=== PATIENT | female | born 1950 | race Caucasian/White ===

== ENCOUNTER → 2018-05-08 | Outpatient (CLI) | payer MEDICARE ==
[~2018-05-08] MED LIST: ACYC400T PO; CITA40TA6 PO; DONE5TAB33 PO; HYDR25TA PO; METO50TA18 PO; PANT40TA25 PO; PRAV20TA4 PO; TIMO1DRO2 OP; XALA2.5OS OD
== END | disposition home or self-care (01) ==
LOC: RAH 14:44
PROVIDERS: ATTEND Internal Medicine Critical Care Medicine
DX: G31.9 Degenerative disease of nervous system, unspecified (principal); R29.810 Facial weakness
CPT/HCPCS: 70551

== ENCOUNTER → 2020-08-05 | Outpatient (CLI) | payer MEDICARE, OTHER ==
[~2020-08-05] MED LIST changes: -PANT40TA25 PO; +PANT40TA54 PO
== END | disposition home or self-care (01) ==
LOC: RAH 09:57
PROVIDERS: ATTEND Internal Medicine Critical Care Medicine
DX: Z12.31 Encounter for screening mammogram for malignant neoplasm of breast (principal)
CPT/HCPCS: 77067

== ENCOUNTER → 2020-08-18 | Outpatient (CLI) | payer OTHER | END | disposition home or self-care (01) | LOC: RAH 13:22 | PROVIDERS: ATTEND Internal Medicine Critical Care Medicine | DX: N63.21 Unspecified lump in the left breast, upper outer quadrant (principal) | CPT/HCPCS: 76641; 77065 ==

== ENCOUNTER 2022-08-07 08:46 | Inpatient (IN) | payer OTHER ==
[~2022-08-07] VITALS: Ht 149.9 cm; Wt 66.0 kg
[2022-08-07] VITALS (23 sets, daily range): BP systolic 98–168; BP diastolic 60–78
[~2022-08-07 08:46] MED LIST changes: -ACYC400T PO; +ACYC400T20 PO; +CITA-108 PO; -CITA40TA6 PO
[2022-08-07] MEDS ORDERED: ONDANSETRON 4MG INJ IVP ONE (09:30)
[2022-08-07] MEDS ORDERED: KETOROLAC 30MG VIAL (30MG/ML) IVP ONE (09:30)
[2022-08-07] MEDS ORDERED: FAMOTIDINE 20MG VIAL IV ONE (09:30)
[2022-08-07 09:40] LABS: BASOPHILS % (AUTO) 0.2 % (0.0-5.0); EOSINOPHILS % (AUTO) 0.1 % (0.0-8.0); HEMATOCRIT 44.7 % (36-48); LYMPHOCYTES % (AUTO) 7.4 % (21.0-51.0); MEAN CORPUSCULAR HEMOGLOBIN 30.4 pg (27.0-33.0); MEAN CORPUSCULAR HGB CONC 33.6 g/dL (32.0-36.0); MEAN CORPUSCULAR VOLUME 90.7 fL (79-99); MONOCYTES % (AUTO) 8.1 % (3.0-13.0); NEUTROPHILS % (AUTO) 83.8 % (40.0-77.0); PLATELET COUNT (AUTO) 320 K/uL (130-400); RED BLOOD CELL COUNT(AUTO) 4.93 MIL/uL (4.00-5.50); RED CELL DISTRIBUTION WIDTH 13.2 % (11.0-15.5)
[2022-08-07 10:04] LABS: CREATININE 1.1 mg/dL (0.5-1.5); POTASSIUM 3.2 mmol/L (3.5-5.1)
[2022-08-07 10:09] LABS: ALBUMIN 3.9 g/dL (3.5-5.0); TOTAL PROTEIN, SERUM 7.6 g/dL (6.0-8.3)
[2022-08-07] MEDS ORDERED: IOHEXOL 350 MG/ML 100ML INFUS..BTL IV ONE (10:20)
[2022-08-07 10:54] LABS: INR 0.98 (0.85-1.15); PROTHROMBIN TIME 10.7 SEC (9.6-11.6)
[2022-08-07 10:55] LABS: PARTIAL THROMBOPLASTIN TIME 23.1 SEC (26.3-35.5)
[2022-08-07] MEDS ORDERED: ASPIRIN 325MG EC TAB PO ONE (11:00)
[2022-08-07] MEDS ORDERED: HYDROMORPHONE 1 MG INJ IVP PRN (11:00)
[2022-08-07] MEDS ORDERED: HEPARIN 25,000 UNITS/250ML D5W 250 ML IV SCH (11:00)
[2022-08-07] MEDS ORDERED: ACETAMINOPHEN 325 MG TAB PO PRN (11:00)
[2022-08-07] MEDS: FLUCONAZOLE 400 MG/NS 200 ML IV SCH (11:27)
[2022-08-07] MEDS: 0.9%NACL 1000ML 1,000 ML IV SCH (11:27)
[2022-08-07] MEDS: INSULIN HUMULIN R 100 UNIT/ML 3ML SQ SCH ×3 (11:28→20:20)
[2022-08-07 11:51] LABS: APPEARANCE,URINE CLEAR (CLEAR); BILIRUBIN,URINE 0.5 mg/dL (NEGATIVE); COLOR,URINE YELLOW (YELLOW); GLUCOSE, URINE (UA) NEGATIVE (NEGATIVE); KETONES,URINE 10 mg/dL (NEGATIVE); LEUKOCYTE ESTERASE ,URINE NEGATIVE Leu/uL (NEGATIVE); NITRATE,URINE NEGATIVE (NEGATIVE); OCCULT BLOOD,URINE SMALL (NEGATIVE); PROTEIN,URINE NEGATIVE (NEGATIVE); UROBILINOGEN,URINE 0.2 mg/dL (0.2-1.0)
[2022-08-07 12:15] LABS: MUCUS,URINE RARE LPF (None Seen); SQUAMOUS EPITHELIAL CELL,UR RARE /HPF (0-2)
[2022-08-07] MEDS ORDERED: CHOL4POW4 PO (14:54)
[2022-08-07] MEDS ORDERED: METF-910 PO (14:54)
[2022-08-07] MEDS ORDERED: MIDAZOLAM HCL 1 MG/ML 2ML VIAL ONE (18:08)
[2022-08-07] MEDS ORDERED: LIDOCAINE PF 100MG/5ML (2%) SYRINGE 5ML ONE (18:08)
[2022-08-07] MEDS ORDERED: DEXAMETHASONE SOD PHOSPHATE 10MG/ML 1ML VIAL ONE (18:08)
[2022-08-07] MEDS ORDERED: GLYCOPYRROLATE 1 MG/5 ML SYRINGE ONE (18:08)
[2022-08-07] MEDS ORDERED: ONDANSETRON 4MG INJ ONE (18:08)
[2022-08-07] MEDS ORDERED: SUCCINYLCHOLINE CHLORIDE 20 MG/ML 10 ML VIAL ONE (18:08)
[2022-08-07] MEDS ORDERED: NEOSTIGMINE 5MG/5ML SYR IV ONE (18:09)
[2022-08-07] MEDS ORDERED: PROPOFOL 10 MG/ML 20ML VIAL IV ONE (18:09)
[2022-08-07] MEDS ORDERED: ROCURONIUM 10MG/1ML SYR 10 MG/ML ML ONE (18:09)
[2022-08-07] MEDS ORDERED: FENTANYL CITRATE PF 50 MCG/1 ML 2ML VIAL ONE (18:10)
[2022-08-07] MEDS ORDERED: IOHEXOL-350 50ML VIAL IV ONE (18:12)
[2022-08-07] MEDS ORDERED: EPHEDRINE SULFATE 50 MG/ML AMPULE ONE (18:13)
[2022-08-07] MEDS ORDERED: ESMOLOL HCL 10 MG/ML 10 ML VIAL ONE (18:50)
[2022-08-07] MEDS ORDERED: POTASSIUM CHLORIDE 20MEQ/100ML 100 ML IV PRN (19:30)
[2022-08-07] MEDS: CEFEPIME HCL 1 GM VIAL IVP SCH (20:07)
[2022-08-08 00:15] VITALS: BP 102/59
[2022-08-08] MEDS: 0.9%NACL 1000ML 1,000 ML IV SCH ×3 (00:20→21:14)
[2022-08-08 05:01] VITALS: BP 105/59
[2022-08-08 05:10] LABS: BASOPHILS % (AUTO) 0.4 % (0.0-5.0); HEMATOCRIT 35.2 % (36-48); LYMPHOCYTES % (AUTO) 21.7 % (21.0-51.0); MEAN CORPUSCULAR HEMOGLOBIN 30.8 pg (27.0-33.0); MEAN CORPUSCULAR HGB CONC 33.2 g/dL (32.0-36.0); MEAN CORPUSCULAR VOLUME 92.6 fL (79-99); MONOCYTES % (AUTO) 11.9 % (3.0-13.0); NEUTROPHILS % (AUTO) 63.7 % (40.0-77.0); PLATELET COUNT (AUTO) 224 K/uL (130-400); RED CELL DISTRIBUTION WIDTH 13.5 % (11.0-15.5); WHITE BLOOD COUNT (AUTO) 7.8 K/uL (4.8-10.8)
[2022-08-08 05:25] LABS: CREATININE 0.9 mg/dL (0.5-1.5); POTASSIUM 3.6 mmol/L (3.5-5.1)
[2022-08-08] MEDS: INSULIN HUMULIN R 100 UNIT/ML 3ML SQ SCH ×4 (05:30→21:00)
[2022-08-08 05:38] LABS: ALBUMIN 2.8 g/dL (3.5-5.0); MAGNESIUM 1.8 mg/dL (1.80-2.40); PHOSPHORUS 3.4 mg/dL (2.5-4.9); THYROID STIMULATING HORMONE 0.3 uIU/mL (0.36-3.74); TOTAL PROTEIN, SERUM 5.9 g/dL (6.0-8.3)
[2022-08-08 08:00] VITALS: BP 112/65
[2022-08-08] MEDS: CEFEPIME HCL 1 GM VIAL IVP SCH ×2 (09:15→21:14)
[2022-08-08] MEDS: FLUCONAZOLE 400 MG/NS 200 ML IV SCH (09:20)
[2022-08-08 12:00] VITALS: BP 99/57
[2022-08-08] MEDS ORDERED: POTASSIUM CHLORIDE 10% ELIXIR 20 MEQ/15 ML UDCUP PO PRN (17:30)
[2022-08-08] MEDS ORDERED: LIDOCAINE HCL-MPF 1% 2ML VIAL IV PRN (17:30)
[2022-08-08] MEDS ORDERED: POTASSIUM CHLORIDE 20MEQ/100ML 100 ML IV PRN (17:30)
[2022-08-08] MEDS: KCL 20 MEQ ERTAB PO PRN ×2 (18:12→21:20)
[2022-08-08 19:57] VITALS: BP 129/75
[2022-08-08] MEDS: METRONIDAZOLE 500MG/100ML BAG 100 ML IVPB SCH (22:13)
[2022-08-08 23:39] VITALS: BP 123/72
[2022-08-09 04:48] VITALS: BP 117/75
[2022-08-09 04:49] LABS: BASOPHILS % (AUTO) 0.6 % (0.0-5.0); EOSINOPHILS % (AUTO) 1.5 % (0.0-8.0); HEMATOCRIT 33.1 % (36-48); LYMPHOCYTES % (AUTO) 25.9 % (21.0-51.0); MEAN CORPUSCULAR HEMOGLOBIN 30.6 pg (27.0-33.0); MEAN CORPUSCULAR HGB CONC 32.9 g/dL (32.0-36.0); NEUTROPHILS % (AUTO) 60.6 % (40.0-77.0); PLATELET COUNT (AUTO) 244 K/uL (130-400); RED BLOOD CELL COUNT(AUTO) 3.56 MIL/uL (4.00-5.50); RED CELL DISTRIBUTION WIDTH 13.6 % (11.0-15.5); WHITE BLOOD COUNT (AUTO) 6.8 K/uL (4.8-10.8)
[2022-08-09 05:01] LABS: ALBUMIN 2.8 g/dL (3.5-5.0); BILIRUBIN,DIRECT 0.8 mg/dL (0.0-0.3); CREATININE 0.8 mg/dL (0.5-1.5); POTASSIUM 3.8 mmol/L (3.5-5.1); TOTAL PROTEIN, SERUM 5.9 g/dL (6.0-8.3)
[2022-08-09] MEDS: INSULIN HUMULIN R 100 UNIT/ML 3ML SQ SCH ×4 (05:12→20:57)
[2022-08-09] MEDS: METRONIDAZOLE 500MG/100ML BAG 100 ML IVPB SCH ×3 (05:25→21:13)
[2022-08-09 08:00] VITALS: BP 127/72
[2022-08-09] MEDS: FLUCONAZOLE 400 MG/NS 200 ML IV SCH (09:23)
[2022-08-09] MEDS: PANTOPRAZOLE 40 MG/VIAL IVP SCH (09:24)
[2022-08-09] MEDS: CEFEPIME HCL 1 GM VIAL IVP SCH ×2 (09:24→20:57)
[2022-08-09] MEDS: ENOXAPARIN SODIUM 40 MG/0.4 ML SYRINGE SQ SCH (09:25)
[2022-08-09 12:00] VITALS: BP 139/76
[2022-08-09] MEDS: 0.9%NACL 1000ML 1,000 ML IV SCH (16:42)
[2022-08-09 20:38] VITALS: BP 143/90
[2022-08-09 23:37] VITALS: BP 128/76
[2022-08-10 04:10] VITALS: BP 141/78
[2022-08-10 04:38] LABS: BASOPHILS % (AUTO) 0.7 % (0.0-5.0); EOSINOPHILS % (AUTO) 2.4 % (0.0-8.0); HEMATOCRIT 34.2 % (36-48); LYMPHOCYTES % (AUTO) 29.7 % (21.0-51.0); MEAN CORPUSCULAR HEMOGLOBIN 30.9 pg (27.0-33.0); MEAN CORPUSCULAR VOLUME 93.4 fL (79-99); MONOCYTES % (AUTO) 11.8 % (3.0-13.0); NEUTROPHILS % (AUTO) 55.1 % (40.0-77.0); PLATELET COUNT (AUTO) 233 K/uL (130-400); RED BLOOD CELL COUNT(AUTO) 3.66 MIL/uL (4.00-5.50); RED CELL DISTRIBUTION WIDTH 13.8 % (11.0-15.5); WHITE BLOOD COUNT (AUTO) 5.9 K/uL (4.8-10.8)
[2022-08-10] MEDS: 0.9%NACL 1000ML 1,000 ML IV SCH (04:49)
[2022-08-10] MEDS: METRONIDAZOLE 500MG/100ML BAG 100 ML IVPB SCH ×2 (04:49→14:35)
[2022-08-10 04:57] LABS: ALBUMIN 2.8 g/dL (3.5-5.0); CREATININE 0.7 mg/dL (0.5-1.5); POTASSIUM 3.9 mmol/L (3.5-5.1); TOTAL PROTEIN, SERUM 6.2 g/dL (6.0-8.3)
[2022-08-10] MEDS: INSULIN HUMULIN R 100 UNIT/ML 3ML SQ SCH ×3 (05:27→15:35)
[2022-08-10 08:00] VITALS: BP 139/80
[2022-08-10] MEDS: FLUCONAZOLE 400 MG/NS 200 ML IV SCH (08:24)
[2022-08-10] MEDS: ENOXAPARIN SODIUM 40 MG/0.4 ML SYRINGE SQ SCH (08:25)
[2022-08-10] MEDS: CEFEPIME HCL 1 GM VIAL IVP SCH (08:25)
[2022-08-10] MEDS: PANTOPRAZOLE 40 MG/VIAL IVP SCH (08:25)
[2022-08-10 11:59] VITALS: BP 157/86
[2022-08-10 16:00] VITALS: BP 153/71
[2022-08-10] MEDS ORDERED: URSO300C4 PO (17:24)
[2022-08-10] MEDS ORDERED: AMOX-426 PO (18:13)
== END 2022-08-10 18:15 | disposition home or self-care (01) | DRG 444 ==
LOC: EDH 08:46 → OBSVTOIN 10:58 → EDHIP 10:58 → 4AH 12:15
PROVIDERS: ADMIT Internal Medicine; ATTEND Internal Medicine
PROC: 0FC98ZZ Extirpation of Matter from Common Bile Duct, Via Natural or Artificial Opening Endoscopic (ICD-10-PCS; principal; 2022-08-07)
PROC: BF131ZZ Fluoroscopy of Gallbladder and Bile Ducts using Low Osmolar Contrast (ICD-10-PCS; 2022-08-07)
PROC: 0F798ZZ Dilation of Common Bile Duct, Via Natural or Artificial Opening Endoscopic (ICD-10-PCS; 2022-08-07)
DX: K80.63 Calculus of gallbladder and bile duct with acute cholecystitis with obstruction (principal); I21.A1 Myocardial infarction type 2; K85.10 Biliary acute pancreatitis without necrosis or infection; F03.94 Unspecified dementia, unspecified severity, with anxiety; B00.52 Herpesviral keratitis; K83.09 Other cholangitis; E11.9 Type 2 diabetes mellitus without complications; E78.00 Pure hypercholesterolemia, unspecified; I10 Essential (primary) hypertension; Z90.710 Acquired absence of both cervix and uterus
CPT/HCPCS: 36415; 43262; 43264; 71045; 74177; 74330; 76700; 80048; 80053; 80076; 81001; 82948; 83690; 83735; 84100; 84145; 84443; 84478; 84484; 85025; 85610; 85730; 93005; 99291; C1769; C1773; C9113; G0378; J0330; J0692; J1100; J1450; J1650; J1885; J2001; J2250; J2405; J2704; J2710; J3010; J3490; J7030; Q9967

== ENCOUNTER 2022-08-29 05:59 | Emergency (ER) | payer OTHER ==
[~2022-08-29] VITALS: Ht 149.9 cm; Wt 67.1 kg
[~2022-08-29 05:59] MED LIST changes: +AMOX-426 PO; +METF-910 PO; +URSO300C4 PO
[2022-08-29 06:49] LABS: BASOPHILS % (AUTO) 0.9 % (0.0-5.0); EOSINOPHILS % (AUTO) 1.6 % (0.0-8.0); HEMATOCRIT 41.1 % (36-48); LYMPHOCYTES % (AUTO) 33.6 % (21.0-51.0); MEAN CORPUSCULAR HEMOGLOBIN 30.4 pg (27.0-33.0); MEAN CORPUSCULAR HGB CONC 32.8 g/dL (32.0-36.0); MEAN CORPUSCULAR VOLUME 92.6 fL (79-99); MONOCYTES % (AUTO) 8.4 % (3.0-13.0); NEUTROPHILS % (AUTO) 55.4 % (40.0-77.0); PLATELET COUNT (AUTO) 252 K/uL (130-400); RED BLOOD CELL COUNT(AUTO) 4.44 MIL/uL (4.00-5.50); RED CELL DISTRIBUTION WIDTH 12.7 % (11.0-15.5); WHITE BLOOD COUNT (AUTO) 8.1 K/uL (4.8-10.8)
[2022-08-29 07:08] LABS: ALBUMIN 3.7 g/dL (3.5-5.0); MAGNESIUM 1.7 mg/dL (1.80-2.40); POTASSIUM 4.3 mmol/L (3.5-5.1); TOTAL PROTEIN, SERUM 6.8 g/dL (6.0-8.3)
[2022-08-29 07:11] LABS: APPEARANCE,URINE CLEAR (CLEAR); BILIRUBIN,URINE NEGATIVE (NEGATIVE); COLOR,URINE DARK-YELLOW (YELLOW); GLUCOSE, URINE (UA) NEGATIVE (NEGATIVE); KETONES,URINE NEGATIVE (NEGATIVE); LEUKOCYTE ESTERASE ,URINE 75 Leu/uL (NEGATIVE); NITRATE,URINE NEGATIVE (NEGATIVE); OCCULT BLOOD,URINE NEGATIVE (NEGATIVE); PH,URINE 5.5 (5.0-8.0); PROTEIN,URINE NEGATIVE (NEGATIVE); UROBILINOGEN,URINE 0.2 mg/dL (0.2-1.0)
[2022-08-29 07:25] LABS: MUCUS,URINE RARE LPF (None Seen); SQUAMOUS EPITHELIAL CELL,UR RARE /HPF (0-2)
[2022-08-29] MEDS ORDERED: OSEL75 PO (08:55)
[2022-08-29 09:20] VITALS: BP 111/63
== END 2022-08-29 09:31 | disposition home or self-care (01) ==
LOC: EDH 05:59
DX: J10.1 Influenza due to other identified influenza virus with other respiratory manifestations (principal); E86.9 Volume depletion, unspecified; R55 Syncope and collapse; I10 Essential (primary) hypertension; E11.9 Type 2 diabetes mellitus without complications; Z20.822 Contact with and (suspected) exposure to COVID-19; Z79.899 Other long term (current) drug therapy; Z79.84 Long term (current) use of oral hypoglycemic drugs; Z90.49 Acquired absence of other specified parts of digestive tract; Z98.890 Other specified postprocedural states
CPT/HCPCS: 99285; 70450; 71045; 87635; 83735; 84484; 80053; 85025; 87088; 87804 ×2; 83605; 81001; 36415; 93005; C9803

== ENCOUNTER → 2023-03-23 | Outpatient (CLI) | payer OTHER ==
[~2023-03-23] MED LIST changes: +OSEL75 PO
== END | disposition home or self-care (01) ==
LOC: RAH 10:56
PROVIDERS: ATTEND Internal Medicine Critical Care Medicine
DX: Z12.31 Encounter for screening mammogram for malignant neoplasm of breast (principal)
CPT/HCPCS: 77063; 77067

== ENCOUNTER → 2023-06-07 | Outpatient (CLI) | payer OTHER | END | disposition home or self-care (01) | LOC: RAH 10:00 | PROVIDERS: ATTEND Internal Medicine Critical Care Medicine | DX: R09.89 Other specified symptoms and signs involving the circulatory and respiratory systems (principal) | CPT/HCPCS: 93880 ==